=== PATIENT | female | born 1950 | race Caucasian/White ===

== ENCOUNTER → 2020-09-10 | Outpatient (CLI) | payer MEDICARE ==
[~2020-09-10] MED LIST: ASCO100018 PO; BIOSIL; CHOL10003 PO; D-mannose PO; ESTR0.5T PO; IRBE75TA6 PO; L.AC1CAP6 PO; LEVO50TA5 PO; ROSU5TAB PO; Vitamin b12 INJ
== END | disposition home or self-care (01) ==
LOC: STAR 14:43
PROVIDERS: ATTEND Urology
DX: Z01.812 Encounter for preprocedural laboratory examination (principal); Z20.828 Contact with and (suspected) exposure to other viral communicable diseases; N28.89 Other specified disorders of kidney and ureter
CPT/HCPCS: 87635; 93005

== ENCOUNTER 2020-09-16 06:02 | Day surgery (SDC) | payer MEDICARE ==
[~2020-09-16] VITALS: Ht 171.4 cm; Wt 56.0 kg
[2020-09-16] MEDS ORDERED: CHLORHEXIDINE 15 ML UDC MM ONE (07:30)
[2020-09-16] MEDS ORDERED: LACTATED RINGERS 1,000 ML IV SCH (07:30)
[2020-09-16] MEDS ORDERED: SODIUM CHLORIDE 0.9% 1,000 ML IV SCH (07:30)
[2020-09-16] MEDS ORDERED: FLUMAZENIL 0.1 MG/1 ML, 5ML ONE ×2 (08:03→13:29)
[2020-09-16] MEDS ORDERED: NALOXONE 1 MG/ML, 2ML ONE ×2 (08:03→13:29)
[2020-09-16] MEDS ORDERED: MIDAZOLAM 1 MG/ML, 5ML ONE ×2 (08:03→13:29)
[2020-09-16] MEDS ORDERED: FENTANYL PF 100 MCG/2ML ONE ×2 (08:03→13:29)
[2020-09-16] MEDS ORDERED: LIDOCAINE 1%, 10ML ONE ×2 (08:07→14:03)
[2020-09-16] MEDS ORDERED: FENTANYL PF 250 MCG/5ML ONE (09:52)
[2020-09-16] MEDS ORDERED: DEXAMETHASONE 4 MG/ML, 1ML ONE (10:25)
[2020-09-16] MEDS ORDERED: GLYCOPYRROLATE 0.2MG/1ML, 5ML ONE (10:25)
[2020-09-16] MEDS ORDERED: NEOSTIGMINE 1 MG/ML, 10ML ONE (10:25)
[2020-09-16] MEDS ORDERED: KETOROLAC 30 MG/1 ML ONE (10:25)
[2020-09-16] MEDS ORDERED: ONDANSETRON 2MG/ML, 2ML ONE (10:25)
[2020-09-16] MEDS ORDERED: ROCURONIUM 10 MG/ML,10ML ONE (10:25)
[2020-09-16] MEDS ORDERED: PROPOFOL 10 MG/ML, 20ML ONE (10:25)
[2020-09-16] MEDS ORDERED: CEFAZOLIN 1,000 MG ONE (10:25)
[2020-09-16] MEDS ORDERED: OMNIPAQUE 350 MG/ML, 50 ML BOTTLE IV ONE (11:30)
[2020-09-16] MEDS ORDERED: MEPERIDINE/PF 25MG/0.5ML IVPush PRN (12:00)
[2020-09-16] MEDS ORDERED: FENTANYL PF 100 MCG/2ML IV PRN (12:00)
[2020-09-16] MEDS ORDERED: hydrALAzine 20 MG/ML, 1ML IV PRN (12:00)
[2020-09-16] MEDS ORDERED: LORazepam 2 MG/ML, 1ML IVPush PRN (12:00)
[2020-09-16] MEDS ORDERED: EPHEDRINE 50 MG/ML, 1ML IVPush PRN (12:00)
[2020-09-16] MEDS ORDERED: METHOCARBAMOL 1,000 MG in DEXTROSE 5% 100 ML IV PRN (12:00)
[2020-09-16] MEDS ORDERED: HYDROmorphone 1 MG/ML, 1ML INJ IVPush PRN (12:00)
[2020-09-16] MEDS ORDERED: ACETAMINOPHEN 325 MG TABLET PO PRN (12:00)
[2020-09-16] MEDS ORDERED: LABETALOL 5MG/ML, 20ML IV PRN (12:00)
[2020-09-16] MEDS ORDERED: OXYcodone 5 MG/5 ML ORAL.SOL UDC PO PRN (12:00)
[2020-09-16] MEDS ORDERED: PROMETHAZINE 25 MG/ML, 1ML IVPush PRN (12:00)
[2020-09-16] MEDS ORDERED: ONDANSETRON 2MG/ML, 2ML IVPush PRN (12:00)
== END 2020-09-16 16:20 | disposition home or self-care (01) ==
LOC: OR 06:02
PROVIDERS: ATTEND Urology
DX: R31.0 Gross hematuria (principal); C66.9 Malignant neoplasm of unspecified ureter; N28.89 Other specified disorders of kidney and ureter; I10 Essential (primary) hypertension; Z79.890 Hormone replacement therapy; Z79.899 Other long term (current) drug therapy; Z91.041 Radiographic dye allergy status; Z85.51 Personal history of malignant neoplasm of bladder
CPT/HCPCS: 50693; 99156; 99157; C1729; C1751; C1758; C1769; C1894; C2617; C2625; J0690; J1100; J1885; J2250; J2405; J2704; J2710; J3010; J7030; Q9967; 50431; 50434; 74425; J2310